=== PATIENT | female | born 1985 | race Caucasian/White ===

== ENCOUNTER 2021-05-03 17:12 | Outpatient (CLI) | payer OTHER | END 2021-05-03 17:13 | disposition home or self-care (01) | LOC: COV 17:12 | PROVIDERS: ATTEND Family Medicine | DX: U07.1 COVID-19 (principal) ==

== ENCOUNTER 2023-12-31 13:58 | Outpatient (CLI) | payer OTHER | END 2023-12-31 13:59 | disposition home or self-care (01) | LOC: LAB.N 13:58 | PROVIDERS: ATTEND Physician Assistant Medical | DX: J02.9 Acute pharyngitis, unspecified (principal) | CPT/HCPCS: 87070 ==

== ENCOUNTER 2024-04-17 03:55 | Outpatient (CLI) | payer OTHER | END 2024-04-17 23:59 | disposition EMS.NT | LOC: EMS 03:55 | DX: R00.0 Tachycardia, unspecified (principal); F41.9 Anxiety disorder, unspecified ==